=== PATIENT | female | born 1975 | race Caucasian/White ===

== ENCOUNTER 2017-03-30 20:46 | Emergency (ER) | payer MEDICAID, OTHER ==
[2017-03-30 20:46] VITALS: BMI 40.2
[2017-03-30 21:31] VITALS: PULSE 84; O2SAT 100
--- NOTE | 2017-03-30 22:06 | C.PDOC ---
History Of Present Illness Patient is a 41 year old female who presents to the ER with a complaint of nonspecific numbness to the right side of her face and right upper extremity for the past few days. Patient note she has a Hx of depression. Patient denies syncopal episodes, chest pain or palpitations. Chief Complaint (Nursing): Weakness/Neurological Deficit History Per: Patient History/Exam Limitations: no limitations Onset/Duration Of Symptoms: Days Current Symptoms Are (Timing): Still Present Activity At Onset Of Symptoms: Other (Not known) Fall Associated With With Symptoms: No Recent travel outside of the [place]: No - Symptoms Of CVA Associated Symptoms: denies: Impaired Speech, Seizure Activity, New Vision Deficit(Left), New Vision Deficit(Right), Decreased Ability To Walk, New Confusion Recent Aspirin Use: Unknown Current Coumadin Use?: Unknown Recent Head Trauma: No Past Medical History Reviewed: Historical Data, Nursing Documentation, Vital Signs Vital Signs: Last Vital Signs Temp Pulse 84 03/30/17 21:26 Resp 16 03/30/17 21:26 BP 150/82 03/30/17 21:26 Pulse Ox 100 03/30/17 23:10 - Medical History PMH: Anemia, Anxiety, HTN, Hypercholesterolemia Surgical History: No Surg Hx Family History: States: Unknown Family Hx - Social History Hx Tobacco Use: No Hx Alcohol Use: No Hx Substance Use: No - Immunization History Hx Tetanus Toxoid Vaccination: No Hx Influenza Vaccination: No Hx Pneumococcal Vaccination: No Review Of Systems Cardiovascular: Negative for: Chest Pain, Palpitations Neurological: Positive for: Numbness (Right face and right upper extremity ). Negative for: Other (Syncope) Physical Exam - Physical Exam Appears: Well, Non-toxic, No Acute Distress Skin: Normal Color, Warm, Dry Head: Atraumatic, Normacephalic Eye(s): bilateral: Normal Inspection, EOMI Oral Mucosa: Moist Chest: Symmetrical, No Tenderness Cardiovascular: Rhythm Regular, No Murmur Respiratory: Normal Breath Sounds, No Rales, No Rhonchi, No Wheezing Gastrointestinal/Abdominal: Soft, No Tenderness Neurological/Psych: Oriented x3, Normal Speech, Normal Cognition, Normal Sensation, Other (No focal deficits) ED Course And Treatment - Laboratory Results Result Diagrams: 03/30/17 22:20 03/30/17 22:20 O2 Sat by Pulse Oximetry: 100 (Room air) Pulse Ox Interpretation: Normal - CT Scan/US Head CT w/o contrast Other Rad Studies (CT/US): Read By Radiologist, Radiology Report Reviewed CT/US Interpretation: IMPRESSION: No acute findings. Progress Note: Head CT w/o contrast, EKG, blood work and urinalysis ordered. Disposition Counseled Patient/Family Regarding: Diagnosis - Disposition Referrals: [facility] [Outside] Disposition: HOME/ ROUTINE Disposition Time: 23:11 Condition: STABLE Prescriptions: Ferrous Sulfate [Feosol] 325 mg PO DAILY #20 tab Instructions: Paresthesia (ED), Anemia (ED) - POA Present On Arrival: None - Clinical Impression Clinical Impression: Paresthesias, Anemia - Scribe Statement The provider has reviewed the documentation as recorded by the Scribgarrett Fletcher All medical record entries made by the Itzelibgarrett were at my direction and personally dictated by me. I have reviewed the chart and agree that the record accurately reflects my personal performance of the history, physical exam, medical decision making, and the department course for this patient. I have also personally directed, reviewed, and agree with the discharge instructions and disposition.
[2017-03-30 22:26] LABS: BASO # 0.1 K/uL (0.0-0.2); BASO % 0.9 % (0.0-2.0); EOS # 0.2 K/uL (0.0-0.7); HEMATOCRIT 31.4 % (34.0-47.0); LYMPH # 2.3 K/uL (1.0-4.3); LYMPH % 27.4 % (20.0-40.0); MEAN CELL VOLUME 73.8 fL (81.0-99.0); MEAN CORPUSCULAR HEMOGLOBIN 22.4 pg (27.0-31.0); MEAN CORPUSCULAR HGB CONC 30.4 g/dL (33.0-37.0); MEAN PLATELET VOLUME 8.1 fL (7.2-11.7); MONO # 0.6 K/uL (0.0-0.8); MONO % 6.6 % (0.0-10.0); WHITE BLOOD COUNT 8.4 K/uL (4.8-10.8)
[2017-03-30 22:35] LABS: CHLORIDE 104 mmol/L (98-107); SODIUM 137 mmol/L (132-148)
[2017-03-30 22:36] LABS: POTASSIUM 3.8 mmol/L (3.6-5.2)
[2017-03-30 22:38] LABS: ALB/GLOB RATIO 1.3 (1.0-2.1); ALKALINE PHOSPHATASE 66 U/L (38-126); ALT/SGPT 18 U/L (9-52); AST/SGOT 13 U/L (14-36); BILIRUBIN,TOTAL 0.4 mg/dL (0.2-1.3); BLOOD UREA NITROGEN 11 mg/dL (7-17); CARBON DIOXIDE 22 mmol/L (22-30); GFR AFRICAN-AMERICAN > 60; GLUCOSE,RANDOM 110 mg/dL (65-105); TOTAL PROTEIN 6.8 g/dL (6.3-8.3)
[2017-03-30 22:39] LABS: CALCIUM 7.7 mg/dl (8.6-10.4)
[2017-03-30 22:41] LABS: RBC URINE 69 /hpf (0-3); TRANSITIONAL EPITHIAL < 1 /hpf (0-3); URINE BACTERIA RARE (<OCC); URINE BILIRUBIN NEGATIVE (NEGATIVE); URINE BLOOD 3+ (NEGATIVE); URINE COLOR Yellow (YELLOW); URINE GLUCOSE (UA) NORMAL (Normal); URINE KETONE NEGATIVE (NEGATIVE); URINE LEUKOCYTE ESTERASE NEG Leu/uL (Negative); URINE PROTEIN NEGATIVE (NEGATIVE); URINE UROBILINOGEN NORMAL mg/dL (0.2-1.0); WBC URINE 2 /hpf (0-5)
[2017-03-30 23:27] VITALS: BP 104/65; RESP 18; TEMP 98.3
--- NOTE | 2017-03-31 11:17 | CT ---
PROCEDURE: CT HEAD WITHOUT CONTRAST. HISTORY: Right facial numbness COMPARISON: 07/26/2015. TECHNIQUE: Axial computed tomography images were obtained through the head/brain without intravenous contrast. Radiation dose: Total exam DLP = 1003.52 mGy-cm. This CT exam was performed using one or more of the following dose reduction techniques: Automated exposure control, adjustment of the mA and/or kV according to patient size, and/or use of iterative reconstruction technique. FINDINGS: HEMORRHAGE: No intracranial hemorrhage. BRAIN: No mass effect or edema. No atrophy or chronic microvascular ischemic changes. VENTRICLES: Unremarkable. No hydrocephalus. CALVARIUM: Unremarkable. PARANASAL SINUSES: Unremarkable as visualized. No significant inflammatory changes. MASTOID AIR CELLS: Unremarkable as visualized. No inflammatory changes. OTHER FINDINGS: None. IMPRESSION: No acute intracranial abnormalities. No significant findings to account for the clinical presentation. No significant interval change compared to the prior examination(s). Concordant results (preliminary interpretation) provided by [facility]. Procedure Completed: 10:57 Preliminary ([facility]) Report: Dictated and Authenticated: 23:07 Final Interpretation: [id number]. March 31, 2017.
--- NOTE | 2017-04-03 12:46 | CARD ---
APPROVED REPORT EKG Measurement Heart [id number] <Conclusion> Normal sinus rhythm Normal ECG
== END 2017-03-30 23:30 | disposition home or self-care (01) ==
LOC: C.ER 20:46
DX: R20.9 Unspecified disturbances of skin sensation (principal); D64.9 Anemia, unspecified